=== PATIENT | female | born 1990 | race Caucasian/White ===

== ENCOUNTER 2025-04-16 05:25 | Outpatient (CLI) | payer MEDICARE ==
[2025-04-16] MEDS: ONDANSETRON 4 MG/2 ML VIAL IVP STA (06:28)
[2025-04-16] MEDS: LACTATED RINGERS 1,000 ML IV SCH (06:28)
[2025-04-16 06:50] VITALS: BP 125/65; PULSE 75; RESP 16; TEMP 98.8
--- NOTE | 2025-04-30 11:39 | P.MSEPDOC ---
Presenting Problems - Arrival Data Date of Arrival on Unit: 04/16/25 Time of Arrival on Unit: 05:25 Mode of Transport: Ambulatory - Complaint OB-Reason for Admission/Chief Complaint: Acute Nausea/Vomiting Comment: N/V started around 2300 Medical History - Information : 1 Para: 0 Term: 0 : 0 Abortions: Spontaneous or Elective: 0 Number of Living Children: 0 - Gestational Age Gestational Age by FLOYD (wks/days): 23 Weeks and 0 Days Review of Systems - Review of Systems Constitutional: No problems Breast: No problems ENT: No problems Cardiovascular: No problems Respiratory: No problems Gastrointestinal: No problems Genitourinary: No problems Musculoskeletal: No problems Neurological: No problems Skin: No problems Vital Signs - Temperature Temperature: 98.8 F Temperature Source: Oral - Pulse Right Sitting Pulse Rate: 75 Pulse Assessment Method: Automatic Cuff - Respirations Respiratory Rate: 16 Oxygen Delivery Method: Room Air O2 Sat by Pulse Oximetry: 100 - Blood Pressure Right Arm Sitting Blood Pressure: 125/65 Blood Pressure Mean: 85 Blood Pressure Source: Automatic Cuff Medical Screen Scoring - Cervical Exam Membranes: Intact - Assessment - Baby A Baseline FHR: 145-158 Physician Notification - Physician Notified Physician Notified Date: 04/16/25 Physician Notified Time: 05:57 Physician: Gene Heard Order Received: Yes (2 liter IV bolus, d/c when IV bolus is complete.) Maternal Triage Index - Maternal Triage Index Presenting for scheduled procedure w/no complaint: No - Stat/Priority 1 Stat Priority 1: No - Urgent/Priority 2 Urgent Priority 2: No - Prompt/Priority 3 Prompt Priority 3: No - Non-Urgent/Priority 4 Non-Urgent Priority 4: Yes Criteria Met for Priority 4: N/V since 2300. No pain or contractions. Disposition - Disposition OB Disposition: Triage Discharge Date: 04/16/25 Discharge Time: 07:33 I agree with the RN Medical Screening Exam: Yes Physician's MSE Comment: I have neither seen nor examined the patient. Case reviewed; plan agreed upon as documented in EMR&OBIX.: Yes Diagnosis: RELATED CONDITIONS, UNSPECIFIED, SECOND TRIMESTER
== END 2025-04-16 07:41 | disposition home or self-care (01) ==
LOC: FBPOP 05:25
PROVIDERS: ATTEND Obstetrics & Gynecology
DX: O21.2 Late vomiting of pregnancy (principal); Z3A.23 23 weeks gestation of pregnancy; Z88.0 Allergy status to penicillin
CPT/HCPCS: 99214; 96361; 96374; 36415; J2405

== ENCOUNTER 2025-04-18 21:14 | Outpatient (CLI) | payer MEDICARE ==
[2025-04-18 22:06] VITALS: BP 127/75; PULSE 84; RESP 16; TEMP 97.1
--- NOTE | 2025-05-07 13:32 | P.MSEPDOC ---
Presenting Problems - Arrival Data Date of Arrival on Unit: 04/18/25 Time of Arrival on Unit: 21:15 Mode of Transport: Ambulatory - Complaint OB-Reason for Admission/Chief Complaint: Pain Comment: pt presents to tr with c/o upper midline abd pain. states she was here saturday am for n/v + abd pain. pt states she hasn't thrown up today but has been having severe pain all day. rating pain 9/10 Medical History - Information : 1 Para: 0 Term: 0 : 0 Abortions: Spontaneous or Elective: 0 Number of Living Children: 0 - Gestational Age Gestational Age by FLOYD (wks/days): 23 Weeks and 2 Days Review of Systems - Review of Systems Constitutional: No problems Breast: No problems ENT: No problems Cardiovascular: No problems Respiratory: No problems Gastrointestinal: No problems Genitourinary: No problems Musculoskeletal: No problems Neurological: No problems Skin: No problems Vital Signs - Temperature Temperature: 97.1 F Temperature Source: Temporal Artery Scan - Pulse Pulse Oximetery Pulse Rate: 84 Pulse Assessment Method: Pulse Oximetry - Respirations Respiratory Rate: 16 Oxygen Delivery Method: Room Air O2 Sat by Pulse Oximetry: 98 - Blood Pressure Right Arm Blood Pressure: 127/75 Blood Pressure Mean: 92 Blood Pressure Source: Automatic Cuff Medical Screen Scoring - Cervical Exam Membranes: Intact - Uterine Contractions Intensity: Absent Resting: Soft to palpation Physician Notification - Physician Notified Physician Notified Date: 04/18/25 Physician Notified Time: 21:27 Physician: Jahaira Greenberg Order Received: No - Notification Comment Comment: RN reported on , 23 2/7 GA, positive FHT via doppler LLQ 142-161, no contraction via TOCO and non per patient. Patient complaint of upper mid abdominal cramping with radiation to the right rib area. Patient abdomen soft upon palpation with tenderness where at the area of complaint. RN reported that patient had came in with N/V with same abdominal pain valery morning with pain being consistant since then. Vomiting has since subsided but intermittent nausea remains. Patient also complains of pale yellow diarrhea. Patient states pain subsided for a significant amount of time yesterday so she consumed a cheeseburger for dinner and the pain came back last night and has been consistant since. Maternal Triage Index - Maternal Triage Index Presenting for scheduled procedure w/no complaint: No - Stat/Priority 1 Stat Priority 1: No - Urgent/Priority 2 Urgent Priority 2: Yes Provider Notified: Jahaira Greenberg Provider Notified Time: 21:27 Criteria Met for Priority 2: pt presents to tr with c/o upper midline abd pain. states she was here valery am for n/v + abd pain. pt states she hasn't thrown up today but has been having severe pain all day. rating pain 9/10. Disposition - Disposition OB Disposition: Discharge to home Discharge Date: 04/18/25 Discharge Time: 21:35 I agree with the RN Medical Screening Exam: Yes Physician's MSE Comment: I have neither seen nor examined the patient Case reviewed; plan agreed upon as documented in EMR&OBIX.: Yes Diagnosis: LATE VOMITING OF
== END 2025-04-18 21:35 | disposition home or self-care (01) ==
LOC: FBPOP 21:14
PROVIDERS: ATTEND Obstetrics & Gynecology
DX: O21.2 Late vomiting of pregnancy (principal); Z3A.23 23 weeks gestation of pregnancy; Z88.0 Allergy status to penicillin
CPT/HCPCS: 99213

== ENCOUNTER 2025-04-18 21:41 | Emergency (ER) | payer MEDICARE, OTHER ==
--- NOTE | 2025-04-18 23:09 | ED ---
Abdominal Pain HPI - General Source: patient, RN notes reviewed Mode of arrival: ambulatory Limitations: no limitations - History of Present Illness Complaint: abdominal pain <Nidhi Sung - Last Filed: 04/18/25 23:09> - General Source: patient, RN notes reviewed, old records reviewed Mode of arrival: ambulatory Limitations: no limitations - History of Present Illness Complaint: abdominal pain -: days(s) Location: diffuse, periumbilical, epigastric, suprapubic Radiation: epigastric Migration to: epigastric Severity scale (1-10): 6 Quality: cramping Consistency: intermittent, colicky Improves With: nothing Worsens With: eating Associated Symptoms: nausea, vomiting, diarrhea Treatments Prior to Arrival: other <Carlos Owusu - Last Filed: 04/25/25 23:28> - General Chief Complaint: Abdominal Pain Stated Complaint: abd pain 23 weeks Time Seen by Provider: 04/18/25 23:03 - History of Present Illness Initial Comments: Quick Note: This is a 35-year-old female who presents to the emergency department for abdominal pain, nausea, and vomiting. Abdominal pain is in the epigastric region. Patient is 23 weeks . She was initially seen on the L&D floor and cleared from their perspective and sent down here for further evaluation. She was told that it could be related to her gallbladder. (Nidhi Sung) Is a 35-year-old female to the ER for evaluation of nausea vomiting of nausea vomiting and abdominal pain in . No fevers. 23 weeks patient was seen upstairs prior to arrival and also has a recent ER visit for similar symptoms (Carlos Owusu) - Related Data Home Medications Medication Instructions Recorded Confirmed Aspirin [Adult Low Dose Aspirin EC] 1 tab PO DAILY 04/16/25 04/18/25 Vit No.179/Iron/Folic 1 tab PO DAILY 04/16/25 04/18/25 [ Tablet] Allergies Allergy/AdvReac Type Severity Reaction Status Date / Time amoxicillin Allergy Rash/Hives Verified 04/18/25 22:57 Review of Systems ROS Other: All systems not noted in ROS Statement are negative. <Nidhi Sung - Last Filed: 04/18/25 23:09> ROS Other: All systems not noted in ROS Statement are negative. <Carlos Owusu - Last Filed: 04/25/25 23:28> ROS Statement: Those systems with pertinent positive or pertinent negative responses have been documented in the HPI. Past Medical History Past Medical History: Asthma History of Any Multi-Drug Resistant Organisms: None Reported Past Surgical History: No Surgical Hx Reported Smoking Status: Former smoker Past Alcohol Use History: None Reported Past Drug Use History: None Reported <Nidhi Sung - Last Filed: 04/18/25 23:09> General Exam Limitations: no limitations <Nidhi Sung - Last Filed: 04/18/25 23:09> General appearance: alert, in no apparent distress Head exam: Present: atraumatic, normocephalic, normal inspection Eye exam: Present: normal appearance, PERRL, EOMI. Absent: scleral icterus, conjunctival injection, periorbital swelling ENT exam: Present: normal exam, mucous membranes moist Neck exam: Present: normal inspection. Absent: tenderness, meningismus, lymphadenopathy Respiratory exam: Present: normal lung sounds bilaterally. Absent: respiratory distress, wheezes, rales, rhonchi, stridor Cardiovascular Exam: Present: regular rate, normal rhythm, normal heart sounds. Absent: systolic murmur, diastolic murmur, rubs, gallop, clicks GI/Abdominal exam: Present: soft, normal bowel sounds. Absent: distended, tenderness, guarding, rebound, rigid Extremities exam: Present: normal inspection, full ROM, normal capillary refill. Absent: tenderness, pedal edema, joint swelling, calf tenderness Back exam: Present: normal inspection Neurological exam: Present: alert, oriented X3, CN II-XII intact Psychiatric exam: Present: normal affect, normal mood Skin exam: Present: warm, dry, intact, normal color. Absent: rash <Carlos Owusu - Last Filed: 04/25/25 23:28> - General Exam Comments Initial Comments: Visual Physical Exam Vital signs reviewed General: Well-appearing, nontoxic, no acute distress. Head: Normocephalic, atraumatic Eyes: PERRLA, EOMI ENT: Airway patent Chest: Nonlabored breathing Skin: No visual rash, normal skin tone Neuro: Alert and oriented 3 Musculoskeletal: No gross abnormalities (Nidhi Sung) Course <Carlos Owusu - Last Filed: 04/25/25 23:28> Vital Signs 04/18/25 04/19/25 22:57 05:58 Temperature 98.7 F 98.0 F Pulse Rate 77 74 Respiratory 18 16 Rate Blood Pressure 109/71 101/63 O2 Sat by Pulse 99 100 Oximetry - Reevaluation(s) Reevaluation #1: 04/19/25 01:30 Medical records reviewed (Carlos Owusu) Reevaluation #2: 04/19/25 01:30 Patient's symptoms improved (Carlos Owusu) Reevaluation #3: 04/19/25 01:30 Patient informed of results questions answered (Carlos Owusu) Reevaluation #4: Was pt. sent in by a medical professional or institution (BILLY Velez, EYE PHYSICIAN, urgent care, hospital, or shelter...) When possible be specific @ -no Did you speak to anyone other than the patient for history (EMS, parent, family, police, friend...)? What history was obtained from this source @ -no Did you review nursing and triage notes (agree or disagree)? Why? @ -agree Are old charts reviewed (outside hosp., previous admission, EMS record, old EKG, old radiological studies, urgent care reports/EKG's, shelter records)? Report findings @ -yes Differential Diagnosis (chest pain, altered mental status, abdominal pain women, abdominal pain men, vaginal bleeding, weakness, fever, dyspnea, syncope, headache, dizziness, GI bleed, back pain, seizure, CVA, palpatations, mental health, musculoskeletal)? @ -prior EKG interpreted by me (3pts min.). @ -yes X-rays interpreted by me (1pt min.). @ -no CT interpreted by me (1pt min.). @ -no U/S interpreted by me (1pt. min.). @ -yes negative for acute disease What testing was considered but not performed or refused? (CT, X-rays, U/S, labs)? Why? @ -none What meds were considered but not given or refused? Why? @ -none Did you discuss the management of the patient with other professionals (professionals i.e. , BILLY, EYE PHYSICIAN, lab, RT, psych nurse, social work specialist, direct support staff member, teacher, chief communications officer, piano case and bench assembler)? Give summary @ -no Was smoking cessation discussed for >3mins.? @ -no Was critical care preformed (if so, how long)? @ -no Were there social determinants of health that impacted care today? How? (Homelessness, low income, unemployed, alcoholism, drug addiction, transportation, low edu. Level, literacy, decrease access to med. care, group home, rehab)? @ -none Was there de-escalation of care discussed even if they declined (Discuss DNR or withdrawal of care, Hospice)? DNR status @ -no What co-morbidities impacted this encounter? (DM, HTN, Smoking, COPD, CAD, Cancer, CVA, ARF, Chemo, Hep., AIDS, mental health diagnosis, sleep apnea, morbid obesity)? @ -none Was patient admitted / discharged? Hospital course, mention meds given and route, prescriptions, significant lab abnormalities, going to OR and other pertinent info. @ - 35 female to ER for evaluation abdominal pain abdominal pain here in the ER ultrasound gallbladder negative lab testing is relatively normal patient feels improved and can be discharged home Discharge Undiagnosed new problem with uncertain prognosis? @ -no Drug Therapy requiring intensive monitoring for toxicity (Heparin, Nitro, Insulin, Cardizem)? @ -no Were any procedures done? @ -no Diagnosis/symptom? @ -Abdominal pain Acute, or Chronic, or Acute on Chronic? @ -Acute Uncomplicated (without systemic symptoms) or Complicated (systemic symptoms)? @ -Complicated Side effects of treatment? @ -no Exacerbation, Progression, or Severe Exacerbation? @ -exacerbation Poses a threat to life or bodily function? How? (Chest pain, [place], [place], pneumonia, PE, COPD, DKA, ARF, appy, cholecystitis, CVA, Diverticulitis, Homicidal, Suicidal, threat to staff... and all critical care pts) @ -no (Carlos Owusu) Reevaluation #5: Differential Abdominal Pain Women: Appendicitis, Cholecystitis, diverticulosis, ischemic bowel, pancreatitis, hepatitis, UTI, gastroenteritis, AAA, incarcerated hernia, bowel obstruction, constipation, inflammatory bowel, hepatitis, peptic ulcer disease, splenic infarction, perforated viscus, vulvitis, ovarian torsion, PID, kidney stone, placenta abruption, this is not meant to be an all-inclusive list (Carlos Owusu) Medical Decision Making - Lab Data Result diagrams: 04/18/25 23:32 04/18/25 23:32 - Radiology Data Radiology results: report reviewed (Ultrasound gallbladder negative for acute disease), image reviewed <Carlos Owusu - Last Filed: 04/25/25 23:28> - Medical Decision Making 35 female to ER for evaluation abdominal pain abdominal pain here in the ER ultrasound gallbladder negative lab testing is relatively normal patient feels improved and can be discharged home (Carlos Owusu) - Lab Data Lab Results 04/18/25 04/18/25 04/18/25 Range/Units 23:32 23:32 23:32 WBC 11.66 H (4.50-10.00) 10*3/uL RBC 3.94 L (4.10-5.20) 10*6/uL Hgb 11.5 L (12.0-15.0) g/dL Hct 34.3 L (37.2-46.3) % MCV 87.1 (80.0-97.0) fL MCH 29.2 (27.0-32.0) pg MCHC 33.5 (32.0-37.0) g/dL Plt Count 346 (140-440) 10*3/uL MPV 9.6 (9.5-12.2) fL Immature Gran % (Auto) 0.3 % Neutrophils % 87.4 % Lymphocytes % 6.9 % Monocytes % 4.8 % Eosinophils % 0.3 % Basophils % 0.3 % Immature Gran # 0.04 (0.00-0.04) 10*3/uL Neutrophils # 10.17 H (1.80-7.70) 10*3/uL Lymphocytes # 0.81 L (0.90-5.00) 10*3/uL Monocytes # 0.56 (0.20-1.00) 10*3/uL Eosinophils # 0.04 (0.04-0.35) 10*3/uL Basophils # 0.04 (0.00-0.10) 10*3/uL Sodium 136 L (137-145) mmol/L Potassium 3.5 (3.5-5.1) mmol/L Chloride 107 (98-107) mmol/L Carbon Dioxide 19 L (22-30) mmol/L Anion Gap 10 mmol/L BUN 3 L (7-17) mg/dL Creatinine 0.50 L (0.52-1.04) mg/dL Est GFR (CKD-EPI)AfAm >90 (>60 ml/min/1.73 sqM) Est GFR (CKD-EPI)NonAf >90 (>60 ml/min/1.73 sqM) Glucose 92 (74-99) mg/dL Plasma Lactic Acid [place] 0.6 L (0.7-2.0) mmol/L Calcium 8.9 (8.4-10.2) mg/dL Magnesium (1.6-2.3) mg/dL Total Bilirubin 0.5 (0.2-1.3) mg/dL AST 37 H (14-36) U/L ALT 57 H (4-34) U/L Alkaline Phosphatase 85 (38-126) U/L Total Protein 6.4 (6.3-8.2) g/dL Albumin 3.6 (3.5-5.0) g/dL Amylase 52 (30-110) U/L Lipase 75 (23-300) U/L Urine Color Urine Appearance (Clear) Urine pH (5.0-8.0) Ur Specific [place] (1.001-1.035) Urine Protein (Negative) Urine Glucose (UA) (Negative) Urine Ketones (Negative) Urine Blood (Negative) Urine Nitrite (Negative) Urine Bilirubin (Negative) Urine Urobilinogen (<2.0) mg/dL Ur Leukocyte Esterase (Negative) 04/18/25 04/19/25 Range/Units 23:32 03:17 WBC (4.50-10.00) 10*3/uL RBC (4.10-5.20) 10*6/uL Hgb (12.0-15.0) g/dL Hct (37.2-46.3) % MCV (80.0-97.0) fL MCH (27.0-32.0) pg MCHC (32.0-37.0) g/dL Plt Count (140-440) 10*3/uL MPV (9.5-12.2) fL Immature Gran % (Auto) % Neutrophils % % Lymphocytes % % Monocytes % % Eosinophils % % Basophils % % Immature Gran # (0.00-0.04) 10*3/uL Neutrophils # (1.80-7.70) 10*3/uL Lymphocytes # (0.90-5.00) 10*3/uL Monocytes # (0.20-1.00) 10*3/uL Eosinophils # (0.04-0.35) 10*3/uL Basophils # (0.00-0.10) 10*3/uL Sodium (137-145) mmol/L Potassium (3.5-5.1) mmol/L Chloride (98-107) mmol/L Carbon Dioxide (22-30) mmol/L Anion Gap mmol/L BUN (7-17) mg/dL Creatinine (0.52-1.04) mg/dL Est GFR (CKD-EPI)AfAm (>60 ml/min/1.73 sqM) Est GFR (CKD-EPI)NonAf (>60 ml/min/1.73 sqM) Glucose (74-99) mg/dL Plasma Lactic Acid [place] (0.7-2.0) mmol/L Calcium (8.4-10.2) mg/dL Magnesium 1.6 (1.6-2.3) mg/dL Total Bilirubin (0.2-1.3) mg/dL AST (14-36) U/L ALT (4-34) U/L Alkaline Phosphatase (38-126) U/L Total Protein (6.3-8.2) g/dL Albumin (3.5-5.0) g/dL Amylase (30-110) U/L Lipase (23-300) U/L Urine Color Colorless Urine Appearance Clear (Clear) Urine pH 5.5 (5.0-8.0) Ur Specific [place] 1.005 (1.001-1.035) Urine Protein Negative (Negative) Urine Glucose (UA) Negative (Negative) Urine Ketones 2+ H (Negative) Urine Blood Negative (Negative) Urine Nitrite Negative (Negative) Urine Bilirubin Negative (Negative) Urine Urobilinogen <2.0 (<2.0) mg/dL Ur Leukocyte Esterase Negative (Negative) Disposition <Nidhi Sung - Last Filed: 04/18/25 23:09> Is patient prescribed a controlled substance at d/c from ED?: No Time of Disposition: 01:00 <Carlos Owusu - Last Filed: 04/25/25 23:28> Clinical Impression: Abdominal pain Disposition: HOME SELF-CARE Condition: Fair Instructions (If sedation given, give patient instructions): Abdominal Pain in (ED) Referrals: None,Stated [Primary Care Provider] - 1-2 days
[2025-04-18 23:44] LABS: Basophils # (A) 0.04 10*3/uL (0.00-0.10); Basophils % (A) 0.3 %; Eosinophils # (A) 0.04 10*3/uL (0.04-0.35); Eosinophils % (A) 0.3 %; HCT 34.3 % (37.2-46.3); HGB 11.5 g/dL (12.0-15.0); Lymphocytes # (A) 0.81 10*3/uL (0.90-5.00); Lymphocytes % (A) 6.9 %; MCH 29.2 pg (27.0-32.0); MCHC 33.5 g/dL (32.0-37.0); MCV 87.1 fL (80.0-97.0); Mean Platelet Volume 9.6 fL (9.5-12.2); Monocytes # (A) 0.56 10*3/uL (0.20-1.00); Monocytes % (A) 4.8 %; Neutrophils # (A) 10.17 10*3/uL (1.80-7.70); Neutrophils % (A) 87.4 %; Platelet Count 346 10*3/uL (140-440); RBC 3.94 10*6/uL (4.10-5.20); RDW 12.2 % (11.5-14.5); WBC 11.66 10*3/uL (4.50-10.00)
[2025-04-19] LABS: ALT 57 U/L (4-34); AST 37 U/L (14-36); African American GFR (CKD) >90 (>60 ml/min/1.73 sqM); Albumin 3.6 g/dL (3.5-5.0); Alkaline Phosphatase 85 U/L (38-126); Amylase 52 U/L (30-110); Anion Gap 10 mmol/L; Blood Urea Nitrogen 3 mg/dL (7-17); Calcium 8.9 mg/dL (8.4-10.2); Carbon Dioxide 19 mmol/L (22-30); Chloride 107 mmol/L (98-107); Glucose 92 mg/dL (74-99); Lipase 75 U/L (23-300); Non-African American GFR(CKD) >90 (>60 ml/min/1.73 sqM); Potassium 3.5 mmol/L (3.5-5.1); Sodium 136 mmol/L (137-145); Total Bilirubin 0.5 mg/dL (0.2-1.3); Total Protein 6.4 g/dL (6.3-8.2)
--- NOTE | 2025-04-19 00:44 | US ---
EXAM: US Abdomen Limited, Gallbladder CLINICAL HISTORY: US Reason: Epigastric pain TECHNIQUE: Real-time ultrasound of the right upper quadrant with image documentation. COMPARISON: No relevant prior studies available. FINDINGS: Liver: The liver measures 14.4 cm with normal echotexture. No focal liver lesion is seen. Gallbladder: The gallbladder is partially distended with no visible stones, wall thickening, or surrounding fluid. Common bile duct: The common bile duct is nondilated measuring 4 mm. Pancreas: The visualized portion of the pancreas is unremarkable. Right kidney: There is an elongated 4.8 cm cyst in the right kidney. No follow-up is required. The right kidney measures 11 cm. Aorta: The visualized portions of the abdominal aorta is nondilated. Inferior vena cava: The IVC is unremarkable. Free fluid: No free fluid in the abdomen. IMPRESSION: The gallbladder is partially distended with no visible stones, wall thickening, or surrounding fluid. Sonographic Saeed's sign is negative.
[2025-04-19] MEDS: ACETAMINOPHEN IV (For NPO) 1,000 MG in EMPTY BAG 1 BAG IVPB STA (02:11)
[2025-04-19] MEDS: SODIUM CHLORIDE 0.9% 1,000 ML IV SCH (02:11)
[2025-04-19] MEDS: diphenhydrAMINE 50 MG/ML 1 ML VIAL IVP STA (02:12)
[2025-04-19] MEDS: ONDANSETRON 4 MG ODT STARTER PACK 2 TAB BTL PO STA (02:13)
[2025-04-19] MEDS: ONDANSETRON 4 MG/2 ML VIAL IVP STA (02:13)
[2025-04-19] MEDS: MAGNESIUM OXIDE 400 MG TAB PO STA (03:14)
[2025-04-19] MEDS: PYRIDOXINE 50 MG TAB PO STA (03:14)
[2025-04-19] MEDS: PYRIDOXINE 100 MG/ML 1 ML VIAL IVP STA (03:18)
[2025-04-19] MEDS: POTASSIUM BICARBONATE/CIT AC 20 MEQ TABLET.EFF PO ONE (03:18)
[2025-04-19] MEDS: MAGNESIUM SULFATE-D5W PMX 1 GM in DEXTROSE/WATER 1 100ML.BAG IVPB ONE (03:18)
[2025-04-19 03:34] LABS: Appearance,Urine Clear (Clear); Bilirubin,Urine Negative (Negative); Blood,Urine Negative (Negative); Color,Urine Colorless; Glucose,Urine (UA) Negative (Negative); Ketones,Urine 2+ (Negative); Leukocyte Esterase,Urine Negative (Negative); Nitrite,Urine Negative (Negative); PH, Urine 5.5 (5.0-8.0); Protein,Urine Negative (Negative); Specific Gravity,Urine 1.005 (1.001-1.035); Urobilinogen,Urine <2.0 mg/dL (<2.0)
[2025-04-19 06:03] VITALS: BP 101/63; PULSE 74; RESP 16; TEMP 98
== END 2025-04-19 05:58 | disposition home or self-care (01) ==
LOC: EC 21:41
DX: O26.892 Other specified pregnancy related conditions, second trimester (principal); Z87.891 Personal history of nicotine dependence; Z88.0 Allergy status to penicillin; Z3A.23 23 weeks gestation of pregnancy
CPT/HCPCS: 36415; 80053; 82150; 83605; 83690; 83735; 85025; 81003; 76705; 99284; 96365; 96367; 96375; 96361; J1200; J2405; J3475; J0131; S0119